=== PATIENT | male | born 1950 | race American Indian/Alaskan Native ===

== ENCOUNTER 2017-06-22 19:32 | Emergency (ER) | payer MEDICARE, BC ==
[2017-06-22 20:18] LABS: BASOPHILS % (AUTO) 0.9 %; EOSINOPHILS # (AUTO) 0.1 10^3/uL (0.0-0.7); EOSINOPHILS % (AUTO) 1.1 %; HGB - HEMOGLOBIN 13.2 g/dL (14.0-18.0); LYMPHOCYTES # (AUTO) 1.1 10^3/uL (1.5-3.5); LYMPHOCYTES % (AUTO) 21.8 %; MEAN CORPUSCULAR HEMOGLOBIN 27.3 pg (27.0-31.0); MEAN CORPUSCULAR HGB CONC 32.4 g/dL (32.0-36.0); MEAN CORPUSCULAR VOLUME 84.2 fL (80.0-94.0); MEAN PLATELET VOLUME 10.9 fL (7.4-11.4); MONOCYTES # (AUTO) 0.7 10^3/uL (0.0-1.0); MONOCYTES % (AUTO) 13.1 %; NEUTROPHILS # (AUTO) 3.1 10^3/uL (1.5-6.6); NEUTROPHILS % (AUTO) 63.1 %; RED BLOOD COUNT 4.83 10^6/uL (4.70-6.10); RED CELL DISTRIBUTION WIDTH 16.8 % (12.0-15.0)
[2017-06-22 20:22] LABS: PLT - PLATELET COUNT 8 10^3/uL (130-450)
[2017-06-22 20:29] LABS: PT - PROTHROMBIN TIME 11.7 secs (9.9-12.6)
[2017-06-22 20:31] LABS: ALBUMIN/GLOBULIN RATIO 1.3 (1.0-2.2); BILIRUBIN,TOTAL 1.4 mg/dL (0.2-1.0); CALCIUM 9.6 mg/dL (8.5-10.3); CREATININE 0.9 mg/dL (0.6-1.2); TOTAL PROTEIN 7.1 g/dL (6.7-8.2)
--- NOTE | 2017-06-22 20:36 | ED Physician Documentation ---
History of Present Illness - Stated complaint Stated Complaint: LAB RESULTS - Chief complaint Chief Complaint: General - History obtained from History obtained from: Patient - History of Present Illness Timing: How many days ago (3-4) Pain level max: 0 Pain level now: 0 Improved by: no ameliorating factors Worsened by: no exacerbating or apparent inciting factors Associated symptoms: bleeding gums x several days, episodic - Additonal information Additional information: 3-4 days of purpura and petechiea BLE, evaluated by PMD earlier today and this evening was called because platelets are 2, was told to go to ED. Patient also has had bleeding gums for several days. No history of similar symptoms/signs Review of Systems Constitutional: reports: Reviewed and negative Cardiac: reports: Reviewed and negative Respiratory: reports: Reviewed and negative GI: reports: Reviewed and negative : denies: Hematuria Skin: reports: Rash Neurologic: reports: Reviewed and negative PD PAST MEDICAL HISTORY - Past Medical History Past Medical History: Yes Cardiovascular: Hypertension, Atrial fibrillation Musculoskeletal: Fibromyalgia - Past Surgical History Past Surgical History: Yes Ortho: Other - Present Medications Home Medications: Ambulatory Orders Medication Instructions Recorded Confirmed Arginine [l-Arginine] 500 mg PO 06/22/17 [place] 1,000 mg ORAL DAILY 06/22/17 Losartan Potassium 50 mg PO DAILY 06/22/17 06/22/17 Metoprolol Tartrate 50 mg PO DAILY 06/22/17 06/22/17 Propafenone [Rythmol] 150 mg PO Q8H 06/22/17 06/22/17 Tumeric 1 tab ORAL DAILY 06/22/17 - Allergies Allergies/Adverse Reactions: Allergies Allergy/AdvReac Type Severity Reaction Status Date / Time No Known Drug Allergies Allergy Verified 06/22/17 20:23 - Social History Does the pt smoke?: No Smoking Status: Never smoker Does the pt drink ETOH?: Yes Does the pt have substance abuse?: Yes Substance Use and Type: Marijuana - Immunizations Immunizations are current?: Yes PD ED PE NORMAL - Vitals Vital signs reviewed: Yes - General General: Alert and oriented X 3, No acute distress, Well developed/nourished - HEENT HEENT: PERRL, EOMI, Moist mucous membranes (few petechiae noted on soft palate and bilateral buccal mucosa) - Cardiac Cardiac: RRR, No murmur, No gallop, No rub - Respiratory Respiratory: No respiratory distress, Clear bilaterally - Abdomen Abdomen: Soft, Non tender, Non distended, No organomegaly - Neuro Neuro: Alert and oriented X 3 Eye Opening: Spontaneous Motor: Obeys Commands Verbal: Oriented GCS Score: 15 PD ED PE EXPANDED - Extremities Extremities: Pedal edema bilateral, Other (significant BLE petechiae with few petechiae BUE. also mild petechiae on lower abdomen) Results - Vitals Vitals: Vital Signs - 24 hr 06/22/17 06/22/17 06/22/17 19:44 22:20 22:43 Temperature 37.2 C 36.0 C L Heart Rate 78 86 Respiratory 18 18 Rate Blood Pressure 149/104 H 164/76 H O2 Saturation 97 96 Oxygen O2 Source Room air - Labs Labs: Laboratory Tests 06/22/17 06/22/17 06/22/17 20:12 20:12 20:12 WBC 5.0 RBC 4.83 Hgb 13.2 L Hct 40.7 L MCV 84.2 MCH 27.3 MCHC 32.4 RDW 16.8 H Plt Count 8 L* MPV 10.9 Neut # 3.1 Lymph # 1.1 L [place] # 0.7 Eos # 0.1 Baso # 0.0 Absolute Nucleated RBC 0.00 Nucleated RBC % 0.0 PT 11.7 INR 1.0 APTT 29.9 Sodium 138 Potassium 3.7 Chloride 107 Carbon Dioxide 21 Anion Gap 10.0 BUN 19 Creatinine 0.9 Estimated GFR (MDRD) 85 L Glucose 123 H Calcium 9.6 Total Bilirubin 1.4 H AST 17 ALT 15 Alkaline Phosphatase 60 Total Protein 7.1 Albumin 4.0 Globulin 3.1 Albumin/Globulin Ratio 1.3 Lipase 24 PD MEDICAL DECISION MAKING - ED course Complexity details: reviewed results, re-evaluated patient, considered differential, d/w patient, d/w sap consultant ED course: D/W Dr. Ben Crum (hematology at [place]) and subsequently with Dr. Morelos. Dr. Morelos (hospitalist at [facility]) accepts patient for transfer. No beds available at [facility]. Departure - Departure Disposition: 02 Transfer Acute Care Hosp Clinical Impression: Thrombocytopenia Condition: Stable Comments: You are to go directly to the emergency department at [facility] in [place]. At the check-in desk, explain that you were transferred from [facility], but that you arrived by private vehicle. Discharge Date/Time: 06/22/17 22:50
[2017-06-22 22:20] VITALS: BP 164/76
== END 2017-06-22 22:50 | disposition short-term general hospital (02) ==
LOC: ED 19:32
DX: D69.6 Thrombocytopenia, unspecified (principal); I10 Essential (primary) hypertension
CPT/HCPCS: 36415; 80053; 83690; 85025; 85610; 85730; 99283; 99284

== ENCOUNTER 2018-02-13 14:37 | Emergency (ER) | payer MEDICARE, BC ==
[2018-02-13 15:20] VITALS: BP 161/105
--- NOTE | 2018-02-13 16:39 | ED Physician Documentation ---
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 Last couple days he is itchy rash on the antecubital fossa and worries that he might have ITP again.) Review of Systems Constitutional: denies: Fever, Chills Throat: denies: Dental pain / toothache PD PAST MEDICAL HISTORY - Past Medical History Cardiovascular: Hypertension, Atrial fibrillation Musculoskeletal: Fibromyalgia - Past Surgical History Past Surgical History: Yes Ortho: Other - Present Medications Home Medications: Ambulatory Orders Medication Instructions Recorded Confirmed Losartan Potassium 50 mg PO DAILY 06/22/17 06/22/17 Metoprolol Tartrate 50 mg PO DAILY 06/22/17 06/22/17 Propafenone [Rythmol] 150 mg PO Q8H 06/22/17 06/22/17 Tumeric 1 tab ORAL DAILY 06/22/17 Hydrocodone/Acetaminophen [Vicodin 1 tab PO BID 02/13/18 02/13/18 5-300 mg Tablet] - Allergies Allergies/Adverse Reactions: Allergies Allergy/AdvReac Type Severity Reaction Status Date / Time No Known Drug Allergies Allergy Verified 02/13/18 15:20 - Social History Does the pt smoke?: No Smoking Status: Never smoker Does the pt drink ETOH?: Yes Does the pt have substance abuse?: Yes - Immunizations Immunizations are current?: Yes PD ED PE NORMAL - Vitals Vital signs reviewed: Yes - General General: Alert and oriented X 3, No acute distress - Derm Derm: Other (There is a flat pruritic rash that looks like a localized dermatitis to the antecubital fossa and anterior forearms.) - Neuro Neuro: Alert and oriented X 3, Normal speech Results - Vitals Vitals: Vital Signs - 24 hr 02/13/18 15:15 Temperature 36.5 C Heart Rate 59 L Respiratory 18 Rate Blood Pressure 161/105 H Oxygen O2 Source Room air - Labs Labs: Laboratory Tests 02/13/18 17:00 WBC 4.6 L RBC 5.01 Hgb 13.6 L Hct 41.3 L MCV 82.4 MCH 27.2 MCHC 33.1 RDW 17.3 H Plt Count 211 MPV 8.2 Neut # (Auto) 3.1 Lymph # (Auto) 1.1 L [place] # (Auto) 0.4 Eos # (Auto) 0.1 Baso # (Auto) 0.0 Absolute Nucleated RBC 0.00 Nucleated RBC % 0.1 PD MEDICAL DECISION MAKING - Sepsis Event Vital Signs: Vital Signs - 24 hr 02/13/18 15:15 Temperature 36.5 C Heart Rate 59 L Respiratory 18 Rate Blood Pressure 161/105 H Oxygen O2 Source Room air Departure - Departure Disposition: 01 Home, Self Care Clinical Impression: Rash Condition: Good Record reviewed to determine appropriate education?: Yes Instructions: HYDROCORTISONE Cream, ED Dermatitis Non Specific Rash Comments: Your blood pressure was elevated today on check into the emergency department. This does not mean that you have hypertension, it is a common phenomenon to come to the emergency department and have elevated blood pressure. I recommend that you see your primary care physician within the week to have it rechecked when you are feeling better.
[2018-02-13 17:08] LABS: BASOPHILS % (AUTO) 0.8 %; EOSINOPHILS # (AUTO) 0.1 10^3/uL (0.0-0.7); EOSINOPHILS % (AUTO) 1.7 %; HGB - HEMOGLOBIN 13.6 g/dL (14.0-18.0); LYMPHOCYTES # (AUTO) 1.1 10^3/uL (1.5-3.5); LYMPHOCYTES % (AUTO) 22.7 %; MEAN CORPUSCULAR HEMOGLOBIN 27.2 pg (27.0-31.0); MEAN CORPUSCULAR HGB CONC 33.1 g/dL (32.0-36.0); MEAN CORPUSCULAR VOLUME 82.4 fL (80.0-94.0); MEAN PLATELET VOLUME 8.2 fL (7.4-11.4); MONOCYTES # (AUTO) 0.4 10^3/uL (0.0-1.0); MONOCYTES % (AUTO) 8.8 %; NEUTROPHILS # (AUTO) 3.1 10^3/uL (1.5-6.6); PLT - PLATELET COUNT 211 10^3/uL (130-450); RED BLOOD COUNT 5.01 10^6/uL (4.70-6.10); RED CELL DISTRIBUTION WIDTH 17.3 % (12.0-15.0); WHITE BLOOD COUNT 4.6 x10^3/uL (4.8-10.8)
== END 2018-02-13 17:55 | disposition home or self-care (01) ==
LOC: ED 14:37
DX: R21 Rash and other nonspecific skin eruption (principal); I10 Essential (primary) hypertension
CPT/HCPCS: 36415; 85025; 99282

== ENCOUNTER 2018-04-21 14:38 | Emergency (ER) | payer MEDICARE, BC ==
[2018-04-21 15:06] LABS: BASOPHILS # (AUTO) 0.1 10^3/uL (0.0-0.1); BASOPHILS % (AUTO) 0.9 %; EOSINOPHILS # (AUTO) 0.1 10^3/uL (0.0-0.7); EOSINOPHILS % (AUTO) 1.1 %; HGB - HEMOGLOBIN 13.6 g/dL (14.0-18.0); LYMPHOCYTES # (AUTO) 1.4 10^3/uL (1.5-3.5); LYMPHOCYTES % (AUTO) 23.7 %; MEAN CORPUSCULAR HEMOGLOBIN 27.4 pg (27.0-31.0); MEAN CORPUSCULAR HGB CONC 33.2 g/dL (32.0-36.0); MEAN CORPUSCULAR VOLUME 82.6 fL (80.0-94.0); MONOCYTES # (AUTO) 0.6 10^3/uL (0.0-1.0); MONOCYTES % (AUTO) 9.3 %; NEUTROPHILS # (AUTO) 3.9 10^3/uL (1.5-6.6); PLT - PLATELET COUNT 227 10^3/uL (130-450); RED BLOOD COUNT 4.96 10^6/uL (4.70-6.10); RED CELL DISTRIBUTION WIDTH 16.9 % (12.0-15.0)
--- NOTE | 2018-04-21 15:20 | ED Physician Documentation ---
PD HPI CHEST PAIN - Stated complaint Stated Complaint: IRREG HEART BEAT/PER PT REPORT - Chief complaint Chief Complaint: Cardiac - History obtained from History obtained from: Patient - History of Present Illness Timing - onset: Yesterday (History of fibrillation presents with palpitation varying heart rate since yesterday. He denies shortness of breath or chest pain. He is not 100% sure that it started yesterday. He feels it is consistent with prior episode of atrial fibrillation, the last was about 6 months ago. He is not anticoagulated. At this point he is not even taking aspirin because of a history of ITP which is resolved. He is on propafenone scheduled and when he goes into A. fib he takes an extra magnesium and metoprolol which he took without resolution.) Review of Systems Ten Systems: 10 systems reviewed and negative Constitutional: denies: Fever, Chills Ears: denies: Loss of hearing, Ear pain Nose: denies: Rhinorrhea / runny nose, Congestion Throat: denies: Sore throat Cardiac: reports: Palpitations. denies: Chest pain / pressure Respiratory: denies: Dyspnea, Cough PD PAST MEDICAL HISTORY - Past Medical History Past Medical History: Yes Cardiovascular: Hypertension, Atrial fibrillation Musculoskeletal: Fibromyalgia - Past Surgical History Past Surgical History: Yes Ortho: Other - Present Medications Home Medications: Ambulatory Orders Medication Instructions Recorded Confirmed Propafenone [Rythmol] 150 mg PO Q8H 06/22/17 06/22/17 RX: Losartan Potassium 50 mg PO DAILY 06/22/17 06/22/17 RX: Metoprolol Tartrate 50 mg PO DAILY 06/22/17 06/22/17 Tumeric 1 tab ORAL DAILY 06/22/17 Hydrocodone/Acetaminophen [Vicodin 1 tab PO BID 02/13/18 02/13/18 5-300 mg Tablet] Apixaban [Eliquis] 5 mg PO BID #60 tablet 04/21/18 - Allergies Allergies/Adverse Reactions: Allergies Allergy/AdvReac Type Severity Reaction Status Date / Time No Known Drug Allergies Allergy Verified 04/21/18 14:52 - Social History Does the pt smoke?: No Smoking Status: Never smoker Does the pt drink ETOH?: Yes Does the pt have substance abuse?: Yes - Immunizations Immunizations are current?: Yes - POLST Patient has POLST: No PD ED PE NORMAL - Vitals Vital signs reviewed: Yes - General General: Alert and oriented X 3, No acute distress - HEENT HEENT: PERRL, EOMI - Neck Neck: Supple, no meningeal sign, No bony TTP - Cardiac Cardiac: No murmur, Other (irreg) - Respiratory Respiratory: No respiratory distress, Clear bilaterally - Abdomen Abdomen: Non tender - Extremities Extremities: No edema, No calf tenderness / cord - Neuro Neuro: Alert and oriented X 3, Normal speech - Psych Psych: Normal mood, Normal affect Results - Vitals Vitals: Vital Signs - 24 hr 04/21/18 04/21/18 14:43 16:26 Temperature 36.9 C Heart Rate 67 83 Respiratory 16 23 Rate Blood Pressure 156/57 H O2 Saturation 96 96 Oxygen O2 Source Room air - EKG (time done) 1449 Rate: Rate (enter#) (80) Rhythm: Atrial flutter Ischemia: Normal ST segments - Labs Labs: Laboratory Tests 04/21/18 04/21/18 04/21/18 15:00 15:03 15:03 WBC 6.0 RBC 4.96 Hgb 13.6 L Hct 41.0 L MCV 82.6 MCH 27.4 MCHC 33.2 RDW 16.9 H Plt Count 227 MPV 8.0 Neut # (Auto) 3.9 Lymph # (Auto) 1.4 L [place] # (Auto) 0.6 Eos # (Auto) 0.1 Baso # (Auto) 0.1 Absolute Nucleated RBC 0.00 Nucleated RBC % 0.0 Sodium 138 Potassium 3.9 Chloride 106 Carbon Dioxide 24 Anion Gap 8.0 BUN 17 Creatinine 1.0 Estimated GFR (MDRD) 75 L Glucose 132 H Calcium 9.2 Magnesium 1.9 Total Bilirubin 1.8 H AST 17 ALT 15 Alkaline Phosphatase 71 Troponin I Total Protein 7.4 Albumin 4.2 Globulin 3.2 Albumin/Globulin Ratio 1.3 Lipase 25 04/21/18 15:03 WBC RBC Hgb Hct MCV MCH MCHC RDW Plt Count MPV Neut # (Auto) Lymph # (Auto) [place] # (Auto) Eos # (Auto) Baso # (Auto) Absolute Nucleated RBC Nucleated RBC % Sodium Potassium Chloride Carbon Dioxide Anion Gap BUN Creatinine Estimated GFR (MDRD) Glucose Calcium Magnesium Total Bilirubin AST ALT Alkaline Phosphatase Troponin I < 0.04 Total Protein Albumin Globulin Albumin/Globulin Ratio Lipase PD MEDICAL DECISION MAKING - ED course ED course: 67-year-old gentleman with history of atrial fibrillation presents with exacerbation of same. He is not 100% sure that this started yesterday, we discussed electrical cardioversion but after discussing risks both he and I feel uncomfortable doing in the department without the ability to check a transesophageal echo given the fact that he is not on anticoagulants or aspirin. A call was placed to his rheumatology specialist for consultation at 1536. I spoke with the rheumatology specialist on-call at [facility] who recommended starting Eliquis and follow-up in the office for either a delay to cardioversion or JAYNE plus cardioversion. Departure - Departure Disposition: Home, Self Care Clinical Impression: Atrial fibrillation Condition: Good Record reviewed to determine appropriate education?: Yes Instructions: Atrial Fibrillation Dc Prescriptions: Apixaban [Eliquis] 5 mg PO BID #60 tablet Comments: Continue current medications. Follow-up with your rheumatology specialist, call on Tuesday for an appointment. Discharge Date/Time: 04/21/18 16:26
[2018-04-21 15:21] LABS: ALBUMIN 4.2 g/dL (3.2-5.5); ALBUMIN/GLOBULIN RATIO 1.3 (1.0-2.2); BILIRUBIN,TOTAL 1.8 mg/dL (0.2-1.0); CALCIUM 9.2 mg/dL (8.5-10.3); TOTAL PROTEIN 7.4 g/dL (6.7-8.2)
--- NOTE | 2018-04-21 15:34 | XRAY Report ---
Reason: palpitations Procedure Date: 04/21/2018 Accession Number: [id number] / [id number] Procedure: XR - Chest 1 View X-Ray CPT Code: 68326 FULL RESULT: EXAM: CHEST RADIOGRAPHY EXAM DATE: 04/21/2018 03:23 PM. CLINICAL HISTORY: Palpitations. COMPARISON: None. TECHNIQUE: 1 view. FINDINGS: Lungs/Pleura: No focal opacities evident. No pleural effusion. No pneumothorax. Mediastinum: Within exam limitations, the cardiomediastinal contour is normal. Other: None. IMPRESSION: No acute cardiopulmonary abnormality. RADIA
[2018-04-21 15:45] VITALS: BP 156/57
[2018-04-21] MEDS ORDERED: APIXABAN 5 MG TABLET PO STA (15:56)
== END 2018-04-21 16:26 | disposition home or self-care (01) ==
LOC: ED 14:38
DX: I48.91 Unspecified atrial fibrillation (principal); I10 Essential (primary) hypertension; Z86.2 Personal history of diseases of the blood and blood-forming organs and certain disorders involving the immune mechanism
CPT/HCPCS: 36415; 71045; 80053; 83690; 83735; 84484; 85025; 93005; 99284; A9270

== ENCOUNTER 2018-04-24 09:52 | Emergency (ER) | payer MEDICARE, BC ==
[2018-04-24 10:04] VITALS: BP 114/99
[2018-04-24] MEDS ORDERED: LIDOCAINE VISCOUS 2% 15 ML UDC MM STA (12:03)
[2018-04-24] MEDS ORDERED: AMOXICILLIN 250 MG CAPSULE PO STA (12:03)
--- NOTE | 2018-04-24 12:24 | ED Physician Documentation ---
History of Present Illness - Stated complaint Stated Complaint: TOOTH PX - Chief complaint Chief Complaint: Heent - Additonal information Additional information: hx from pt to ED L lower tooth pain with chewing and biting recently seen for a fib and had an extensive cardiac work up and will see cardio tomorrow this tooth pain is not chest pain - it hurts to bite and touch no fever Review of Systems Constitutional: denies: Fever Throat: reports: Dental pain / toothache PD PAST MEDICAL HISTORY - Past Medical History Past Medical History: Yes Cardiovascular: Hypertension, Atrial fibrillation Musculoskeletal: Fibromyalgia - Past Surgical History Past Surgical History: Yes Ortho: Other - Present Medications Home Medications: Ambulatory Orders Medication Instructions Recorded Confirmed Losartan Potassium 50 mg PO DAILY 06/22/17 06/22/17 Metoprolol Tartrate 50 mg PO DAILY 06/22/17 06/22/17 Propafenone [Rythmol] 150 mg PO Q8H 06/22/17 06/22/17 Tumeric 1 tab ORAL DAILY 06/22/17 Hydrocodone/Acetaminophen [Vicodin 1 tab PO BID 02/13/18 02/13/18 5-300 mg Tablet] Apixaban [Eliquis] 5 mg PO BID #60 tablet 04/21/18 Amoxicillin 500 mg PO Q8HR #30 capsule 04/24/18 Lidocaine Viscous 2% [Xylocaine 2 ml MM Q4H PRN #1 bottle 04/24/18 Viscous 2%] - Allergies Allergies/Adverse Reactions: Allergies Allergy/AdvReac Type Severity Reaction Status Date / Time No Known Drug Allergies Allergy Verified 04/21/18 14:52 - Social History Does the pt smoke?: No Smoking Status: Never smoker Does the pt drink ETOH?: Yes Does the pt have substance abuse?: Yes - Immunizations Immunizations are current?: Yes - POLST Patient has POLST: No PD ED PE NORMAL - Vitals Vital signs reviewed: Yes - HEENT HEENT: Other (no trismus no sig swelling TTP left lower molar which is caped, no visible decay but some gum erythema) - Neck Neck: Supple, no meningeal sign - Cardiac Cardiac: RRR - Respiratory Respiratory: No respiratory distress, Clear bilaterally Results - Vitals Vitals: Vital Signs - 24 hr 04/24/18 10:01 Temperature 36.7 C Heart Rate 62 Respiratory 18 Rate Blood Pressure 114/99 H O2 Saturation 99 Oxygen O2 Source Room air Departure - Departure Disposition: 01 Home, Self Care Clinical Impression: Pain, dental Condition: Good Instructions: ED Tooth Pain Prescriptions: Amoxicillin 500 mg PO Q8HR #30 capsule Lidocaine Viscous 2% [Xylocaine Viscous 2%] 2 ml MM Q4H PRN #1 bottle PRN Reason: dental pain Comments: Follow up with dental
== END 2018-04-24 12:53 | disposition home or self-care (01) ==
LOC: ED 09:52
DX: K08.89 Other specified disorders of teeth and supporting structures (principal); I10 Essential (primary) hypertension; I48.91 Unspecified atrial fibrillation; Z79.01 Long term (current) use of anticoagulants
CPT/HCPCS: 99283; A9270